=== PATIENT | male | born 1925 | race Caucasian/White ===

== ENCOUNTER → 2016-04-20 | Outpatient (CLI) | payer OTHER ==
[~2016-04-20] MED LIST: ACET-1311 PO; APIX1TAB3 PO; BISA10SU3 PR; CEPH500C2 PO; CRDCD/180 PO; FINA5TAB4 PO; FISH1CAP3 PO; METO25TA56 PO; MOMLX PO; POLY1POW PO; PRNJ PO; QUET1TAB30 PO; SODI1ENE PR; TAMS0.4C38 PO; VITA100C2 PO; ZNTT/150 PO; [UNRECOGNIZED DRUG - CODE] TOP
[2016-04-20 08:39] LABS: BASO % 0.3 %; BASO ABS # 0.02 K/uL (0-0.2); COMPLETE YES; EOS % 3.6 %; HEMATOCRIT 33.6 % (42-52); IG% 0.2 %; LYMPH % 43.3 %; LYMPH ABS # 2.54 K/uL (1.2-3.4); MEAN CELL VOLUME 91.6 fL (80-100); MEAN CORPUSCULAR HGB CONC 32.7 g/dl (32-36); MEAN PLATELET VOLUME 10.4 fL (7.4-10.4); MONO % 11.1 %; NEUT % 41.5 %; PLATELET COUNT 227 K/uL (130-400); RED BLOOD COUNT 3.67 M/uL (4.7-6.1); WHITE BLOOD COUNT 5.86 K/uL (4.8-10.8)
[2016-04-20 08:51] LABS: FERRITIN 49.7 ng/ml (8.0-388.0)
== END ==
LOC: C.LABCC 08:05
PROVIDERS: ATTEND Internal Medicine
DX: D64.9 Anemia, unspecified (principal)

== ENCOUNTER → 2016-06-25 | Outpatient (CLI) | payer OTHER | END | disposition home or self-care (01) | LOC: C.PATHSPEC 14:04 | PROVIDERS: ATTEND Dermatology | DX: L72.0 Epidermal cyst (principal) ==

== ENCOUNTER → 2016-06-25 | Outpatient (CLI) | payer OTHER | END | disposition home or self-care (01) | LOC: C.LABSPEC 13:26 | PROVIDERS: ATTEND Dermatology | DX: L72.0 Epidermal cyst (principal) ==

== ENCOUNTER → 2016-08-22 | Outpatient (CLI) | payer OTHER ==
[2016-08-22 15:40] LABS: MANUAL MICROSCOPIC REQUIRED? YES; REVIEW REQ? NO; SULFASALICYLIC ACID POS (NEG); URINE APPEARANCE TURBID (CLEAR); URINE COLOR BROWN; URINE SPECIFIC GRAVITY 1.016 (1.000-1.030)
[2016-08-22 15:44] LABS: URINE MUCUS PRESENT (NONE PRSENT); URINE RBC >30 /hpf (0-4)
[2016-08-22 15:48] LABS: URINE BACTERIA 1+ (NEG)
== END ==
LOC: C.LABCC 12:38
PROVIDERS: ATTEND Internal Medicine
DX: R31.9 Hematuria, unspecified (principal)